=== PATIENT | female | born 1990 ===

== ENCOUNTER 2018-01-19 08:48 | Emergency (ER) | payer OTHER ==
--- NOTE | 2018-01-19 08:57 | UC ---
Ear Complaint HPI - HPI Summary HPI Summary: 27 yo female presents with left ear pain. She tells me that she is an active swimmer and developed ear pain 5-6 days ago. Saw [facility] on 01/16 and was dx'd with an outer ear infection and placed on cortisporin ear drops. Has been using them for 2 days and has experienced no relief. Today is having significant pain to left ear and clear drainage. Denies fever, chills. - History of Current Complaint Stated Complaint: EAR PAIN Time Seen by Provider: 01/19/18 08:57 Hx Obtained From: Patient Onset/Duration: Sudden Onset Severity Initially: Moderate Severity Currently: Severe Pain Intensity: 9 Pain Scale Used: 0-10 Numeric - Allergies/Home Medications Allergies/Adverse Reactions: Allergies Allergy/AdvReac Type Severity Reaction Status Date / Time No Known Allergies Allergy Verified 01/19/18 08:58 Home Medications: Home Medications Ibuprofen TAB* [Motrin TAB* 600 MG] 600 mg PO Q6H PRN 01/19/18 [History Confirmed 01/19/18] Neomyc/Polym/HC 1% OTIC SUSP* [Cortisporin Otic Susp 1%*] 4 drop LEFT EAR QID [History Confirmed 01/19/18] PMH/Surg Hx/FS Hx/Imm Hx - Additional Past Medical History Additional PMH: None Previously Healthy: Yes - Surgical History Surgical History: None - Family History Known Family History: Positive: None - Social History Occupation: Student Lives: With Family Alcohol Use: Occasionally Substance Use Type: None Smoking Status (MU): Never Smoked Tobacco Review of Systems Constitutional: Negative Skin: Negative Eyes: Negative ENT: Ear Ache Respiratory: Negative Cardiovascular: Negative Neurovascular: Negative Neurological: Negative Psychological: Negative All Other Systems Reviewed And Are Negative: Yes Physical Exam - Summary Physical Exam Summary: GENERAL: NAD. WDWN. No pain distress. SKIN: No rashes, sores, lesions, or open wounds. HEENT: Head: AT/NC Eyes: EOM intact. Conjunctiva clear without inflammation or discharge. Ears: Hearing grossly normal. RIGHT TM occluded by cerumen No canal edema or drainage. LEFT TM: Moderate canal edema with moderate clear/white drainage. Pinna significantly TTP. No erythema. Nose: Nasal mucosa pink and moist. NTTP maxillary and frontal sinus. Throat: Posterior oropharynx without exudates, erythema, or tonsillar enlargement. Uvula midline. NECK: Supple. Nontender. No lymphadenopathy. CHEST: CTAB. No r/r/w. No accessory muscle use. Breathing comfortably and in no distress. CV: RRR. Without m/r/g. Pulses intact. Brisk cap refill. NEURO: Alert. CN II-XII grossly intact. PSYCH: Age appropriate behavior. Triage Information Reviewed: Yes Vital Signs: Vital Signs: Temp Pulse Resp BP Pulse Ox 96.7 F 85 18 123/72 99 01/19/18 09:01 01/19/18 09:01 01/19/18 09:01 01/19/18 09:01 01/19/18 09:01 Ear Complaint Course/Dx - Course Course Of Treatment: Otitis externa. Switched to Ciprodex f/u if no relief within 48 hours - Differential Dx/Diagnosis Provider Diagnoses: Otitis externa left Discharge - Sign-Out/Discharge Documenting (check all that apply): Discharge/Admit/Transfer - Discharge Plan Condition: Stable Disposition: HOME Prescriptions: Ciproflox/Dexameth OTIC.SUSP* [Ciprodex OTIC.SUSP*] 1 drop LEFT EAR QID #1 btl Patient Education Materials: Otitis Externa (DC) Referrals: No Primary Care Phys,NOPCP [Primary Care Provider] - Additional Instructions: If you develop a fever, shortness of breath, chest pain, new or worsening symptoms - please call your PCP or go to the ED. - Billing Disposition and Condition Condition: STABLE Disposition: HOME
[2018-01-19 09:07] VITALS: BP 123/72
[2018-01-19] MEDS ORDERED: Lidocaine 1% MPF* 2 ML VIAL INJ ONE (09:14)
== END 2018-01-19 09:30 | disposition home or self-care (01) ==
LOC: UCEAST 08:48
DX: H60.92 Unspecified otitis externa, left ear (principal)
CPT/HCPCS: 99202; G0463